=== PATIENT | female | born 1980 | race African-American/Black ===

== ENCOUNTER 2021-11-22 20:44 | Inpatient (IN) | payer MEDICAID, MEDICARE ==
[~2021-11-22] VITALS: Ht 157.5 cm; Wt 108.5 kg
[2021-11-22] MEDS ORDERED: IPRATROPIUM BROMIDE (0.02%) 0.5MG/2.5ML NEB HHN STA ×2 (22:40→23:59)
[2021-11-22] MEDS ORDERED: METHYLPREDNISOLONE SOD SUCC 125 MG/2 ML VIAL IV STA (22:40)
[2021-11-22] MEDS ORDERED: ALBUTEROL (0.083%) 2.5MG/3ML NEB HHN STA ×2 (22:40→23:59)
[2021-11-22 23:36] LABS: EOSINOPHILS % 1.3 % (0.0-5.0); HEMATOCRIT. 35.9 % (36.0-48.0); HEMOGLOBIN. 11.7 g/dL (12.0-16.0); LYMPHOCYTES % 23.9 % (20.0-50.0); MEAN CORPUSCULAR HEMOGLOBIN 28.1 pg (28.0-32.0); MEAN CORPUSCULAR VOLUME 86.1 fL (81.0-99.0); MEAN PLATELET VOLUME 11.1 fl (7.4-10.4); MONOCYTES % 7.3 % (2.0-8.0); NEUTROPHILS % 66.5 % (40.0-76.0); PLATELET 274 x1000/uL (130-400); RED BLOOD CELL COUNT 4.17 mill/uL (4.2-5.4); RED CELL DISTRIBUTION WIDTH 15.6 % (11.6-14.6)
[2021-11-22 23:40] LABS: CHLORIDE 108 mEq/L (98-107)
[2021-11-22 23:41] LABS: HCG SCREEN NEGATIVE
[2021-11-22 23:59] LABS: CLARITY URINE CLEAR (CLEAR); COLOR URINE YELLOW (YELLOW); KETONES URINE TRACE (NEGATIVE); LEUKOCYTE ESTERASE URINE NEGATIVE (NEGATIVE); NITRITE URINE NEGATIVE (NEGATIVE); OCCULT BLOOD URINE 1+ (NEGATIVE); PH URINE 6.5 (4.5-8.0); PROTEIN URINE TRACE (NEGATIVE); SPECIFIC GRAVITY URINE 1.026 (1.005-1.030)
[2021-11-22] MEDS ORDERED: MORPHINE SULFATE 4 MG/ML CPJ (NOT FOR IM USE) IV STA (23:59)
[2021-11-23] MEDS ORDERED: MORPHINE SULFATE 2 MG/ML CPJ (NOT FOR IM USE) IV ONE (02:30)
[2021-11-23] MEDS ORDERED: NALOXONE HCL 0.4MG/ML VIAL IV PRN (05:45)
[2021-11-23] MEDS: MORPHINE SULFATE 2 MG/ML CPJ (NOT FOR IM USE) IV PRN ×5 (05:53→23:20)
[2021-11-23] MEDS ORDERED: ALBUTEROL (0.083%) 2.5MG/3ML NEB HHN NR (10:15)
[2021-11-23] MEDS ORDERED: IPRATROPIUM BROMIDE (0.02%) 0.5MG/2.5ML NEB HHN NR (10:15)
[2021-11-23] MEDS ORDERED: DOCUSATE SODIUM 100MG CAPSULE PO PRN (10:30)
[2021-11-23] MEDS ORDERED: CLONIDINE 0.1MG TABLET PO PRN (10:30)
[2021-11-23] MEDS ORDERED: MAGNESIUM/ALUMINUM HYDROXIDE/SIMETHICONE 30ML UDC PO PRN (10:30)
[2021-11-23] MEDS: ENOXAPARIN 40MG/0.4ML SYR SUBCUT SCH ×2 (10:55→11:00)
[2021-11-23] MEDS: METHYLPREDNISOLONE SOD SUCC 125 MG/2 ML VIAL IV SCH ×3 (10:55→23:20)
[2021-11-23 15:15] VITALS: BP 159/90
[2021-11-23] MEDS ORDERED: IPRA3AMP9 NEB (15:36)
[2021-11-23] MEDS ORDERED: DEXTL PO (15:36)
[2021-11-23] MEDS ORDERED: TRAM50TA3 PO (15:36)
[2021-11-23] MEDS ORDERED: BUDE1AMP2 (15:36)
[2021-11-23] MEDS ORDERED: ALBU2.5V13 (15:36)
[2021-11-23] MEDS ORDERED: MOME13HF IH (15:36)
[2021-11-23] MEDS ORDERED: PRED10TA PO (15:36)
[2021-11-23] MEDS ORDERED: TRAMADOL 50MG TABLET PO PRN (15:45)
[2021-11-23 16:00] VITALS: BP 145/82
[2021-11-23] MEDS: LIDOCAINE 5% PATCH TOP SCH (17:47)
[2021-11-23] MEDS: IPRATROPIUM/ALBUTEROL 0.5-3(2.5)MG/3ML NEB HHN PRN (18:51)
[2021-11-23 20:00] VITALS: BP 135/82
[2021-11-23] MEDS: ONDANSETRON HCL 4MG/2ML INJ IV PRN (23:22)
[2021-11-24] VITALS: BP 124/75
[2021-11-24] MEDS: IPRATROPIUM/ALBUTEROL 0.5-3(2.5)MG/3ML NEB HHN PRN ×5 (00:04→20:26)
[2021-11-24] MEDS ORDERED: DIPHENHYDRAMINE 50MG CAPSULE PO PRN (01:00)
[2021-11-24] MEDS ORDERED: MORPHINE SULFATE 2 MG/ML CPJ (NOT FOR IM USE) IV NR (01:00)
[2021-11-24] MEDS: DIPHENHYDRAMINE 50MG/ML VIAL IV PRN ×2 (01:09→08:10)
[2021-11-24] MEDS ORDERED: HYDROCORTISONE 1% CREAM 30GM TOP PRN (02:30)
[2021-11-24 04:00] VITALS: BP 119/69
[2021-11-24] MEDS: MORPHINE SULFATE 2 MG/ML CPJ (NOT FOR IM USE) IV PRN ×6 (05:45→23:56)
[2021-11-24] MEDS: METHYLPREDNISOLONE SOD SUCC 125 MG/2 ML VIAL IV SCH ×4 (05:45→23:55)
[2021-11-24 05:48] LABS: HEMATOCRIT. 38.1 % (36.0-48.0); HEMOGLOBIN. 12.3 g/dL (12.0-16.0); MEAN CORPUSCULAR HEMOGLOBIN 28.3 pg (28.0-32.0); MEAN PLATELET VOLUME 11.4 fl (7.4-10.4); PLATELET 79 x1000/uL (130-400); RED BLOOD CELL COUNT 4.33 mill/uL (4.2-5.4); RED CELL DISTRIBUTION WIDTH 15.2 % (11.6-14.6)
[2021-11-24 08:00] VITALS: BP 124/83
[2021-11-24 09:03] LABS: CLARITY URINE CLEAR (CLEAR); COLOR URINE YELLOW (YELLOW); KETONES URINE TRACE (NEGATIVE); LEUKOCYTE ESTERASE URINE NEGATIVE (NEGATIVE); NITRITE URINE NEGATIVE (NEGATIVE); OCCULT BLOOD URINE NEGATIVE (NEGATIVE); PROTEIN URINE TRACE (NEGATIVE)
[2021-11-24 09:20] LABS: CHLORIDE 104 mEq/L (98-107)
[2021-11-24] MEDS: LIDOCAINE 5% PATCH TOP SCH (09:45)
[2021-11-24] MEDS: ONDANSETRON HCL 4MG/2ML INJ IV PRN ×2 (09:45→20:13)
[2021-11-24] MEDS: ENOXAPARIN 40MG/0.4ML SYR SUBCUT SCH (11:00)
[2021-11-24 12:00] VITALS: BP 144/82
[2021-11-24] MEDS ORDERED: LIDOCAINE 5% PATCH TOP NR (14:00)
[2021-11-24 16:00] VITALS: BP 144/79
[2021-11-24] MEDS ORDERED: MORPHINE SULFATE 2 MG/ML CPJ (NOT FOR IM USE) IV PRN (18:00)
[2021-11-24 18:53] LABS: *AMPHETAMINES SCREEN URINE NEGATIVE (NEGATIVE); *BARBITURATES SCREEN URINE NEGATIVE (NEGATIVE)
[2021-11-24 18:54] LABS: *BENZODIAZEPINES SCREEN URINE NEGATIVE (NEGATIVE); *COCAINE SCREEN URINE NEGATIVE (NEGATIVE); CANNABINOID URINE SCREEN NEGATIVE (NEGATIVE); METHADONE URINE SCREEN NEGATIVE (NEGATIVE); OPIATES URINE SCREEN PRESUMTIVE POSITIVE (NEGATIVE); PHENCYCLIDINE URINE SCREEN PRESUMTIVE POSITIVE (NEGATIVE)
[2021-11-24] MEDS ORDERED: DIPHENHYDRAMINE 50MG/ML VIAL IV PRN (19:45)
[2021-11-24 20:00] VITALS: BP 150/80
[2021-11-24] MEDS: GUAIFENESIN-DM 200MG-20MG/10ML UDC PO PRN (22:21)
[2021-11-24 23:56] LABS: PLATELET ESTIMATE DECREASED
[2021-11-25] VITALS (7 sets, daily range): BP systolic 133–155; BP diastolic 61–75
[2021-11-25] MEDS: IPRATROPIUM/ALBUTEROL 0.5-3(2.5)MG/3ML NEB HHN PRN ×4 (00:11→16:25)
[2021-11-25] MEDS: METHYLPREDNISOLONE SOD SUCC 125 MG/2 ML VIAL IV SCH ×3 (05:30→19:38)
[2021-11-25] MEDS: MORPHINE SULFATE 2 MG/ML CPJ (NOT FOR IM USE) IV PRN ×2 (05:30→09:48)
[2021-11-25 07:25] LABS: HEMATOCRIT. 37.1 % (36.0-48.0); MEAN CORPUSCULAR VOLUME 86.7 fL (81.0-99.0); MEAN PLATELET VOLUME 10.9 fl (7.4-10.4); PLATELET 275 x1000/uL (130-400); RED BLOOD CELL COUNT 4.28 mill/uL (4.2-5.4); RED CELL DISTRIBUTION WIDTH 15.3 % (11.6-14.6)
[2021-11-25 07:27] LABS: CHLORIDE 105 mEq/L (98-107)
[2021-11-25] MEDS: LIDOCAINE 5% PATCH TOP SCH (09:23)
[2021-11-25] MEDS: ONDANSETRON HCL 4MG/2ML INJ IV PRN (09:48)
[2021-11-25] MEDS ORDERED: P20 MT (09:56)
[2021-11-25] MEDS: ENOXAPARIN 40MG/0.4ML SYR SUBCUT SCH (11:00)
[2021-11-25] MEDS: GUAIFENESIN-DM 200MG-20MG/10ML UDC PO PRN (13:03)
[2021-11-25] MEDS ORDERED: ENOXAPARIN 30MG/0.3ML SYR SUBCUT SCH (21:00)
[2021-11-26 10:10] LABS: EOSINOPHILS % 0.1 % (0.0-5.0); LYMPHOCYTES % 6.9 % (20.0-50.0); MONOCYTES % 4.7 % (2.0-8.0); NEUTROPHILS % 88.3 % (40.0-76.0)
== END 2021-11-25 22:30 | disposition home or self-care (01) | DRG 189 ==
LOC: ER 20:44 → MICUSO 11-23 05:58 → 6WST 11-23 15:21 → UNDODISIN 11-25 17:42
PROVIDERS: ADMIT Internal Medicine; ATTEND Internal Medicine
DX: J96.00 Acute respiratory failure, unspecified whether with hypoxia or hypercapnia (principal); J44.1 Chronic obstructive pulmonary disease with (acute) exacerbation; J45.901 Unspecified asthma with (acute) exacerbation; E83.51 Hypocalcemia; Z20.822 Contact with and (suspected) exposure to COVID-19; E87.8 Other disorders of electrolyte and fluid balance, not elsewhere classified; E83.39 Other disorders of phosphorus metabolism; Z79.52 Long term (current) use of systemic steroids; Z96.642 Presence of left artificial hip joint; Z88.6 Allergy status to analgesic agent; Z88.1 Allergy status to other antibiotic agents; Z88.3 Allergy status to other anti-infective agents; W18.30XA Fall on same level, unspecified, initial encounter; Y93.9 Activity, unspecified; Y92.238 Other place in hospital as the place of occurrence of the external cause
CPT/HCPCS: 36415; 71045; 71101; 73502; 80048; 80053; 80076; 80305; 81003; 82306; 83735; 84100; 84484; 84703; 85025; 85379; 87426; 93005; 93970; 94640; 94644; 99291; J1200; J1650; J2270; J2405; J2930